=== PATIENT | female | born 1995 | race Caucasian/White ===

== ENCOUNTER 2019-07-02 12:27 | Emergency (ER) | payer OTHER ==
--- NOTE | 2019-07-02 12:54 | ED ---
Lower Extremity - HPI Summary HPI Summary: 24-year-old female with no significant past medical history presents to the emergency department today complaining of bilateral pain and swelling in her toes bilaterally. Patient states her right great toe has a cut on which was infected and given Keflex [facility]. Patient complains of redness and pain to her toes mainly the distal third toe of the right foot. Patient states she's had these symptoms for approximately 3 days. There is also a small approximately 1 cm circumferential erythematous rash noted to the base of the second and third toe on the right foot which began this morning. Patient states she has 3 out of 10 pain with her toes which she describes as a inflamed feeling. Patient is otherwise well and denies fever, chest pain, bone pain, shortness breath, nausea, vomiting or diarrhea. - History of Current Complaint Chief Complaint: EDExtremityLower Stated Complaint: POSS FOOT INFECTION PER PT Time Seen by Provider: 07/02/19 12:37 Hx Obtained From: Patient Onset/Duration: Days Severity Initially: Mild Severity Currently: Mild Pain Intensity: 0 Pain Scale Used: 0-10 Numeric Timing: Constant Location: Is Discrete @ - toes Associated Signs And Symptoms: Positive: Redness. Negative: Swelling, Bruising Aggravating Factor(s): Ambulation Alleviating Factor(s): Rest Able to Bear Weight: Yes - Allergies/Home Medications Allergies/Adverse Reactions: Allergies Allergy/AdvReac Type Severity Reaction Status Date / Time No Known Allergies Allergy Verified 07/02/19 12:28 Home Medications: Home Medications Cephalexin CAP* [Keflex CAP*] 500 mg PO BID 07/02/19 [History Confirmed 07/02/19 ] Terbinafine HCl [Athlete's Foot] 15 gm TP BID #1 cream..g. 07/02/19 [Rx] PMH/Surg Hx/FS Hx/Imm Hx Endocrine/Hematology History: Denies: Hx Diabetes Cardiovascular History: Denies: Hx Hypertension, Hx Pacemaker/ICD History: Denies: Hx Renal Disease Sensory History: Denies: Hx Hearing Aid Psychiatric History: Denies: Hx Panic Disorder Infectious Disease History: No Infectious Disease History: Denies: Traveled Outside the [place] in Last 30 Days Review of Systems Constitutional: Negative Eyes: Negative ENT: Negative Cardiovascular: Negative Respiratory: Negative Gastrointestinal: Negative Genitourinary: Negative Musculoskeletal: Negative Positive: Rash Neurological/Mental Status: Negative Psychological: Normal All Other Systems Reviewed And Are Negative: Yes Physical Exam - Summary Physical Exam Summary: small approximately 1 cm circumferential erythematous rash noted to the base of the second and third toe on the right foot. Patient has full range of motion of the toes bilaterally with dorsalis pedis pulse 2+ bilaterally. Patient's full sensation to light touch similar tremors bilaterally. There is mild erythema noted to the distal aspects of the patient's toes. No obvious abscess or open wound noted. No scaling noted. Triage Information Reviewed: Yes Vital Signs On Initial Exam: Initial Vitals Temp Pulse Resp BP Pulse Ox 98.6 F 69 18 149/99 100 07/02/19 12:29 07/02/19 12:07/02/19 12:07/02/19 12:07/02/19 12:29 Vital Signs Reviewed: Yes Appearance: Positive: Well-Appearing, No Pain Distress, Well-Nourished Skin: Positive: Warm, Skin Color Reflects Adequate Perfusion Eyes: Positive: EOMI, MIR ENT: Positive: Hearing grossly normal Respiratory/Lung Sounds: Positive: Clear to Auscultation, Breath Sounds Present Cardiovascular: Positive: RRR, S1, S2 Abdomen Description: Positive: Nontender, Soft Bowel Sounds: Positive: Present Musculoskeletal: Positive: Strength/ROM Intact Neurological: Positive: Sensory/Motor Intact, Alert, Oriented to Person Place, Time, Normal Gait, Facial Symmetry, Speech Normal Psychiatric: Positive: Normal, Affect/Mood Appropriate AVPU Assessment: Alert Procedures - Sedation Patient Received Moderate/Deep Sedation with Procedure: No Diagnostics - Vital Signs Vital Signs Temp Pulse Resp BP Pulse Ox 07/02/19 12:29 98.6 F 69 18 149/99 100 - Laboratory Lab Statement: Any lab studies that have been ordered have been reviewed, and results considered in the medical decision making process. Lower Extremity Course/Dx - Course Course Of Treatment: Patient was evaluated today in the emergency department today for rash and pain to her feet. Vitals noted and stable. Physical exam is consistent with tinea pedis right foot. Scabbed over wound was noted to the left great toe. No evidence of significant infection noted. Patient was given prescription for terbinafine and instructed to continue taking her Keflex. Patient discharged to follow-up. - Diagnoses Differential Diagnosis/HQI/PQRI: Positive: Infection, Other - Tinea pedis, tinea corporis, tinea unguium Provider Diagnoses: Foot pain Discharge ED - Sign-Out/Discharge Documenting (check all that apply): Patient Departure - Discharge Plan Condition: Stable Disposition: HOME Prescriptions: Terbinafine HCl [Athlete's Foot] 15 gm TP BID #1 cream..g. Patient Education Materials: Athlete's Foot (ED) Referrals: [facility] [Primary Care Provider] - 3 Days Additional Instructions: Please use antifungal cream, terbinafine as directed; this was sent to your pharmacy. Please continue to take antibiotic Keflex which was given to you. [facility] with [facility] days further evaluation and management. Please return to the emergency department immediately should you develop any new or worsening symptoms. - Billing Disposition and Condition Condition: STABLE Disposition: Home
[2019-07-02 13:28] VITALS: BP 119/75
== END 2019-07-02 13:21 | disposition home or self-care (01) ==
LOC: ED 12:27
DX: M79.672 Pain in left foot (principal); M79.671 Pain in right foot; R21 Rash and other nonspecific skin eruption
CPT/HCPCS: 99282